=== PATIENT | female | born 1965 | race Caucasian/White ===

== ENCOUNTER 2019-04-25 01:10 | Day surgery (SDC) | payer OTHER, SELFPAY ==
[2019-04-19 14:37] VITALS: BMI 34.5
--- NOTE | 2019-04-25 07:16 | PM.HPGS ---
History of Present Illness History of Present Illness Consent: Risks, benefits, and alternatives have been discussed and questions answered. Patient agrees to proceed with procedure. Chief complaint: Granulation Tissue Of Vagina Narrative: Asia Elias is a 53 year old female with vaginal bleeding. On exam, noted to have granulation tissue anterior vagina about 3 cm into canal. Attempted x 2 removal with silver nitrate. No visible suture or palpable suture but is along prior anterior vaginal repair line and suspect suture is present. Plan local excision of granulation tissure and removal of underlying suture if present. Reviewed risks of infection, bleeding, and recurrence with patient. She voices understanding and agrees to proceed. [facility] Past Medical History Medical History (Updated 04/25/19 @ 07:23 by Lila Guillory MD) HTN (hypertension) Migraines (normal spontaneous vaginal delivery) x 5 Surgical History Surgical History (Updated 04/25/19 @ 07:22 by Lila Guillory MD) deliv NOS-unsp History of suburethral sling procedure and A&P repair 2011 S/P endometrial ablation S/P tubal ligation Status post breast reduction Meds Home Medications and Allergies Home Medications Medication Instructions Recorded Confirmed Type bupropion HCl 300 mg PO DAILY 04/19/19 04/19/19 History cyclobenzaprine 10 mg PO DAILY 04/19/19 04/19/19 History ergocalciferol (vitamin D2) 50,000 unit PO WEEKLY 04/19/19 04/19/19 History [Vitamin D2] fluoxetine 60 mg PO DAILY 04/19/19 04/19/19 History fluticasone propionate 2 spray INTRANASAL DAILY 04/19/19 04/19/19 History loratadine 10 mg PO DAILY 04/19/19 04/19/19 History meloxicam 15 mg PO DAILY 04/19/19 04/19/19 History montelukast 10 mg PO DAILY 04/19/19 04/19/19 History multivitamin 1 tablet PO DAILY 04/19/19 04/19/19 History propranolol 10 mg PO TID PRN 04/19/19 04/19/19 History rizatriptan 10 mg PO BID PRN 04/19/19 04/19/19 History ropinirole 1 mg PO HS 04/19/19 04/19/19 History topiramate 100 mg PO BID 04/19/19 04/19/19 History verapamil 80 mg PO TID 04/19/19 04/19/19 History Allergies Allergy/AdvReac Type Severity Reaction Status Date / Time Sulfa (Sulfonamide Allergy Mild HIVES AND Unverified 04/25/19 07:22 Antibiotics) SWELLING Exam Const: General: healthy appearing and alert Orientation/consciousness: patient oriented x3 Resp: Effort & Inspection: normal respiratory effort Auscultation: clear to auscultation bilaterally Cardio: Rate: regular rate Rhythm: regular rhythm GI: GI Palp: Yes Soft to palpation, No Tenderness to palpation present (GI) and No Palpable mass present : External Female Exam: normal external appearance Speculum Exam - Vagina: normal vaginal discharge and other (granulation tissue approx. 3 cm into vagina anterior about 1 cm diameter) Speculum Exam - Cervix: normal appearance of the cervix Bimanual exam- vagina & uterus: uterine size normal and consistency normal Bimanual Exam- Adnexa, other: normal adnexae and No adnexal tenderness Neuro: General: patient oriented x3 Assessment and Plan Assessment and plan (1) Granulation tissue at vaginal vault: Code(s): N89.8 - Other specified noninflammatory disorders of vagina Status: Acute Assessment and Plan: Plan excision of granulation tissue and possible underlying suture
[2019-04-25] MEDS: LACTATED RINGERS 1,000 ML 30 ML IV CONT (07:40)
[2019-04-25 07:48] VITALS: BP 106/55; PULSE 50; RESP 16; TEMP 36.2; O2SAT 99
--- NOTE | 2019-04-25 08:15 | WPDANESEPPF ---
Anes - Initial Pre Proc Eval Procedure: Operation Date: 04/25/19 09:00 Proposed Procedures p Excision Of Vaginal Granulation Tissue - Lila Guillory MD Date/Time: 04/25/19 08:15 Surgeon: Lila Guillory MD Pre Op Diagnosis: Granulation Tissue Of Vagina Patient Data Age: 53 Gender: F Height: 5 ft 1 in Weight: 83.2 kg Last Vital Signs Temp 36.2 C L 04/25/19 07:48 Pulse 50 L 04/25/19 07:48 Resp 16 04/25/19 07:48 BP 106/55 L 04/25/19 07:48 Pulse Ox 99 04/25/19 07:48 Allergies Allergy/AdvReac Type Severity Reaction Status Date / Time Sulfa (Sulfonamide Allergy Mild HIVES AND Verified 04/25/19 07:47 Antibiotics) SWELLING Home Medications Medication Instructions Recorded Confirmed Type bupropion HCl 300 mg PO DAILY 04/19/19 04/25/19 History cyclobenzaprine 10 mg PO DAILY 04/19/19 04/25/19 History ergocalciferol (vitamin D2) 50,000 unit PO WEEKLY 04/19/19 04/25/19 History [Vitamin D2] fluoxetine 60 mg PO DAILY 04/19/19 04/25/19 History fluticasone propionate 2 spray INTRANASAL DAILY 04/19/19 04/25/19 History loratadine 10 mg PO DAILY 04/19/19 04/25/19 History meloxicam 15 mg PO DAILY 04/19/19 04/25/19 History montelukast 10 mg PO DAILY 04/19/19 04/25/19 History multivitamin 1 tablet PO DAILY 04/19/19 04/25/19 History propranolol 10 mg PO TID PRN 04/19/19 04/25/19 History rizatriptan 10 mg PO BID PRN 04/19/19 04/25/19 History ropinirole 1 mg PO HS 04/19/19 04/25/19 History topiramate 100 mg PO BID 04/19/19 04/25/19 History verapamil 80 mg PO TID 04/19/19 04/25/19 History Patient hx anesthesia problems: none Family hx anesthesia problems: none PMFSH Past Medical History Medical History Anxiety Depression HTN (hypertension) Migraines (normal spontaneous vaginal delivery) x 5 Surgical History Surgical History deliv NOS-unsp History of suburethral sling procedure and A&P repair 2011 S/P endometrial ablation S/P tubal ligation Status post breast reduction Anes - Eval Final PreProcedure Day of Procedure 04/25/19 08:15 Patient weight: obese Heart: regular rate and rhythm Lungs: clear to auscultation Airway: Mallampati scale class II Neurological: alert and oriented Last oral intake: >/= 8 hours ASA classification: III Emergent: no Anesthetic plan: proceed Anesthesia type and monitoring: general GIVS and standard monitoring Informed Consent: The patient's anesthetic plan and its attendant risks and benefits were discussed with the patient/family/POA. Questions were solicited and answers provided to the satisfaction of the patient/family/POA.
[2019-04-25] MEDS: IBUPROFEN IV 800 MG/200 ML 800 MG/200 ML BAG 400 MG IVPB (08:58)
[2019-04-25] MEDS: LIDO 1%/EPINEPHRINE 1:100,000 20 ML VIAL 3 ML INFILTRATE (09:13)
--- NOTE | 2019-04-25 09:14 | PM.OP ---
Procedure Note - Brief Procedure Note - Brief Date of procedure: 04/25/19 Pre-op diagnosis: Granulation Tissue Of Vagina Post-op diagnosis: same Procedure performed: excision of vaginal granulation tissue and suture Anesthesia: MAC and local Surgeon: Lila Guillory MD Estimated blood loss (mL): 5 Drains: No Packing: No Pathology: none sent Complications: No immediate complications Condition: stable Disposition: PACU Findings: 3 cm into vagina, midline, anterior is a 1 cm area of granulation tissue; deep to granulation tissue is an ethibon suture
--- NOTE | 2019-04-25 09:15 | SUR.OPER ---
EBL:[id number]
[2019-04-25 09:18] VITALS: BP 95/55; PULSE 60; RESP 16; O2SAT 100
[2019-04-25 09:45] VITALS: BP 103/73; PULSE 50
[2019-04-25 10:15] VITALS: BP 101/60; PULSE 45
--- NOTE | 2019-04-25 13:19 | OP_ITS ---
DATE OF PROCEDURE: 04/25/2019 PREOPERATIVE DIAGNOSIS: Vaginal granulation tissue. POSTOPERATIVE DIAGNOSIS: Vaginal granulation tissue. DESCRIPTION OF PROCEDURE: The patient was taken to the operating room, placed in the dorsal lithotomy position. Under anesthesia, she was prepped and draped in the usual sterile fashion. Bivalved speculum was placed in the vagina sideways and would not allow visualization of the granulation tissue. Short weighted speculum was obtained in place. The granulation tissue was grasped at the edge and using Metzenbaum, excised. The underlying suture was visible and grasped with the pickup and excised. The remainder of the granulation tissue was excised. The defect was closed using 3-0 Vicryl in a [id number] suture. Good hemostasis was noted. 1% lidocaine with epinephrine was injected prior to the procedure. Miracle I MT: Chris
== END 2019-04-25 10:27 | disposition home or self-care (01) ==
PROVIDERS: Visit Provider Obstetrics & Gynecology Gynecology
PROC: (CPT 58999; principal; 2019-04-25 09:00)
DX: N89.8 Other specified noninflammatory disorders of vagina (principal); I10 Essential (primary) hypertension; F41.8 Other specified anxiety disorders; E66.9 Obesity, unspecified; Z68.34 Body mass index [BMI] 34.0-34.9, adult
CPT/HCPCS: 58999; J1100; J1741; J2250; J2405; J2704; J3010; J7120